=== PATIENT | male | born 1980 | race Caucasian/White ===

== ENCOUNTER 2018-12-13 08:55 | Emergency (ER) | payer OTHER ==
[~2018-12-13] VITALS: Ht 172.7 cm; Wt 92.5 kg
[2018-12-13 09:02] VITALS: Ht 172.7 cm; Wt 92.5 kg
[2018-12-13 11:00] VITALS: BP 144/86
== END 2018-12-13 11:00 | disposition home or self-care (01) ==
LOC: ED 08:55
DX: S61.011A Laceration without foreign body of right thumb without damage to nail, initial encounter (principal); W25.XXXA Contact with sharp glass, initial encounter; Y93.89 Activity, other specified; Y92.89 Other specified places as the place of occurrence of the external cause; Y99.8 Other external cause status
CPT/HCPCS: 90715; J2001

== ENCOUNTER 2018-12-15 19:44 | Emergency (ER) | payer OTHER ==
[~2018-12-15] VITALS: Ht 170.2 cm; Wt 92.1 kg
[2018-12-15 20:02] VITALS: Ht 170.2 cm; Wt 92.1 kg
[2018-12-15 22:05] VITALS: BP 126/79
== END 2018-12-15 22:05 | disposition home or self-care (01) ==
LOC: ED 19:44
DX: S61.011D Laceration without foreign body of right thumb without damage to nail, subsequent encounter (principal); R03.0 Elevated blood-pressure reading, without diagnosis of hypertension; X58.XXXD Exposure to other specified factors, subsequent encounter

== ENCOUNTER 2018-12-25 09:23 | Emergency (ER) | payer OTHER ==
[~2018-12-25] VITALS: Ht 157.5 cm; Wt 92.1 kg
[2018-12-25 09:27] VITALS: Ht 157.5 cm; Wt 92.1 kg
[2018-12-25 11:26] VITALS: BP 111/77
== END 2018-12-25 11:26 | disposition home or self-care (01) ==
LOC: ED 09:23
DX: S61.011D Laceration without foreign body of right thumb without damage to nail, subsequent encounter (principal); W25.XXXD Contact with sharp glass, subsequent encounter